=== PATIENT | female | born 1965 | race Caucasian/White ===

== ENCOUNTER 2023-03-12 08:34 | Day surgery (SDC) | payer BC ==
[2023-03-05 14:30] LABS: BASOPHILS # (AUTO) 0.1 X10'3 (0-0.2); BASOPHILS % (AUTO) 1.3 % (0-1); EOSINOPHILS # (AUTO) 0.2 X10'3 (0-0.9); EOSINOPHILS % (AUTO) 2.6 % (0-6); LYMPHOCYTES # (AUTO) 3.6 X10'3 (1.1-4.8); LYMPHOCYTES % (AUTO) 43.9 % (21-51); MEAN CORPUSCULAR HEMOGLOBIN 31.5 PG (27.0-31.0); MEAN CORPUSCULAR HGB CONC 32.7 g/dL (33.0-36.5); MEAN CORPUSCULAR VOLUME 96.6 FL (78-98); MEAN PLATELET VOLUME 8.1 FL (7.4-10.4); MONOCYTES # (AUTO) 0.6 X10'3 (0-0.9); MONOCYTES % (AUTO) 7.7 % (2-12); NEUTROPHILS # (AUTO) 3.6 X10'3 (1.8-7.7); NEUTROPHILS % (AUTO) 44.5 % (42-75); PRE OP HEMATOCRIT 41.9 % (35.0-45.0); PRE OP HEMOGLOBIN 13.7 g/dL (12.0-16.0); PRE OP PLATELET COUNT 256 X10'3 (140-440); RED BLOOD COUNT 4.34 X10'6 (4.20-5.60); RED CELL DISTRIBUTION WIDTH 12.9 % (11.5-14.5)
[2023-03-05 14:50] LABS: ALBUMIN 3.8 G/DL (3.4-5.0); ALBUMIN/GLOBULIN RATIO 1.1 (1.1-1.5); ALKALINE PHOSPHATASE 81 IU/L (46-116); BLOOD UREA NITROGEN 20 MG/DL (7-18); BUN/CREATININE RATIO 27.4 (10.0-20.0); CALCIUM 8.7 MG/DL (8.5-10.1); CHLORIDE 106 MMOL/L (99-107); CREATININE 0.73 MG/DL (0.40-0.90); PRE OP ALT 30 U/L (30-65); PRE OP ANION GAP 10 (8-16); PRE OP AST 16 U/L (10-37); PRE OP BILIRUB, TOTAL 0.2 MG/DL (0.0-1.0); PRE OP GLUCOSE 95 MG/DL (70-104); PRE OP POTASSIUM 3.6 MMOL/L (3.4-5.1); PRE OP SODIUM 140 MMOL/L (135-145); TOTAL CARBON DIOXIDE 24.4 MMOL/L (24-32); TOTAL PROTEIN 7.2 G/DL (6.4-8.2); eGFR 83 ML/MIN
[~2023-03-12] VITALS: Ht 160 cm; Wt 72.0 kg
[2023-03-12] VITALS (14 sets, daily range): BP systolic 85–143; BP diastolic 74–103
[~2023-03-12 08:34] MED LIST: ATOR40TA72 PO; CHOL200074 PO; IBUP-1986 PO; MELA10TA2 PO; MONT-40 PO; MULT-1085 PO; OMEP40CA21 PO; cefazolin 2gm/D5W 100mL 100 ML IV ONE; famotidine 20mg tablet PO ONE; ringers solution, lacted 1,000 ML IV SCH
--- NOTE | 2023-03-12 09:24 | NUR ---
PT STATES HAS TAKEN KEFLEX IN THE PAST WITH NO DIFFICULTLY. ALLERGY ONLY TO PCN.
[2023-03-12] MEDS ORDERED: LIDOcaine 1% 30ml preserv. free vial ONE (09:48)
[2023-03-12] MEDS ORDERED: BUPIVAcaine/PF 2.5 mg/ml (0.25%) 30ml vial ONE ×2 (09:48→09:51)
[2023-03-12] MEDS ORDERED: BUPIVACAINE liposomal/PF 13.3 MG/ML vial IM ONE (09:51)
[2023-03-12] MEDS ORDERED: sevoflurane 250ml liquid IH ONE (09:53)
[2023-03-12] MEDS ORDERED: dexamethasone sod phosphate 10mg/ml inj ONE (09:53)
[2023-03-12] MEDS ORDERED: fentaNYL/PF 50MCG/1 ML 2ML syringe ONE (10:02)
[2023-03-12] MEDS ORDERED: meperidine/PF 25mg/ml syringe ONE ×2 (10:03→11:58)
[2023-03-12] MEDS ORDERED: midazolam 1 mg/ML 2ml injection ONE (10:03)
[2023-03-12] MEDS ORDERED: LIDOcaine 1%/PF 5ML 10 MG/ML VIAL ONE (10:09)
[2023-03-12] MEDS ORDERED: rocuronium 10mg/ml inj IV ONE (10:09)
[2023-03-12] MEDS ORDERED: propofol inj 20 ML IV ONE (10:09)
[2023-03-12] MEDS ORDERED: ondansetron/PF 4mg/2ml inj ONE (11:11)
[2023-03-12] MEDS ORDERED: neostigmine methylsulfate 1 MG/ML 10ml vial ONE (11:11)
[2023-03-12] MEDS ORDERED: glycopyrrolate 0.2mg/ml inj ONE (11:11)
[2023-03-12] MEDS ORDERED: ketorolac trometh. 30mg/ml inj. ONE (11:13)
--- NOTE | 2023-03-12 11:24 | NUR ---
Received from OR via [facility], accompanied by Anesthesiologist DR ARRIETA and report given by Anesthesiologist. PT PLACED ON BEDSIDE MONITOR, VSS. PT IS RECEIVING 10L O2 TO MASK AND TOLERATING WELL WITH O2 SAT > 95%. WILL TITRATE DOWN AT PT TOLERATES. PT HAS 20H PIV TO RT WRIST WITH LR INFUSING ORDERED. PT HAS BAND-AID X3 TO LEFT UPPER ABD THAT ARE ALL CDI, ABD BINDER IN PLACE. PT IS RESTING WITH NO S/S OF DISTRESS/DISCOMFORT. WILL CONTINUE TO ASSESS
[2023-03-12] MEDS ORDERED: oxyCODONE/APAP 5-325mg tablet PO PRN (11:35)
[2023-03-12] MEDS ORDERED: morphine 4 MG/ML inj SYRINge IV PRN (11:55)
[2023-03-12] MEDS ORDERED: morphine 2 MG/ML inj. syringe IV PRN (11:55)
[2023-03-12] MEDS ORDERED: proCHLORperazine 10 MG/2 ml inj IV PRN (11:55)
[2023-03-12] MEDS ORDERED: meperidine/PF 25mg/ml syringe IV PRN ×2 (11:55)
[2023-03-12] MEDS ORDERED: ondansetron/PF 4mg/2ml inj IV PRN (11:55)
[2023-03-12] MEDS ORDERED: ringers solution, lacted 1,000 ML IV SCH (11:55)
[2023-03-12] MEDS: meperidine/PF 25mg/ml syringe IV PRN ×3 (11:59→13:03)
--- NOTE | 2023-03-12 13:45 | NUR ---
DC HOME: ALL DISCHARGE CRITERIA HAS BEEN MET. VSS, PAIN AT TOLERABLE LEVEL. ABLE TO SAFELY AMBULATE AND TRANSFER SELF. IV TAKEN OUT WITHOUT ANY COMPLICATIONS. ALL DISCHARGE INSTRUCTIONS COVERED WITH PATIENT AND ALL QUESTIONS ANSWERED. PATIENT TAKEN OUT VIA WHEELCHAIR TO PERSONAL VEHICLE WHERE DROVE PATIENT HOME.
== END 2023-03-12 13:33 | disposition home or self-care (01) ==
LOC: PAS 08:34
PROVIDERS: ATTEND Surgery
DX: K43.0 Incisional hernia with obstruction, without gangrene (principal); K42.9 Umbilical hernia without obstruction or gangrene; J44.9 Chronic obstructive pulmonary disease, unspecified; K21.9 Gastro-esophageal reflux disease without esophagitis; F17.210 Nicotine dependence, cigarettes, uncomplicated; Z98.890 Other specified postprocedural states; Z79.899 Other long term (current) drug therapy; Z90.49 Acquired absence of other specified parts of digestive tract; Z88.5 Allergy status to narcotic agent; Z88.0 Allergy status to penicillin; Z88.8 Allergy status to other drugs, medicaments and biological substances
CPT/HCPCS: 36415; 49594; 64488; 80053; 82948; 85025; 93005; C1781; C9290; J0690; J1885; J2175; J2250; J2405; J2704; J2710; J3010; J3490; J7030; J7120; Z7506; Z7508; Z7512; A4215; A4618; J1100